=== PATIENT | female | born 1990 | race American Indian/Alaskan Native ===

== ENCOUNTER 2017-02-20 11:11 | Inpatient (IN) | payer MEDICAID ==
[2017-02-20] MEDS ORDERED: LACTATED RINGERS 1,000 ML ONE (12:06)
[2017-02-20] MEDS ORDERED: POLYCILLIN/NS 2 GM/100 ML 2 GM/100 ML BAG IV ONE (12:26)
[2017-02-20 12:41] LABS: Hemoglobin 13.1 gm/dl (10.1-14.3); Mean Corpuscular HGB Conc 35 % (30-34); Mean Corpuscular Hemoglobin 32 pg (28-32); Mean Corpuscular Volume 91 fl (79-97); Platelet Count 249 K/mm3 (140-440); Red Blood Count 4.16 M/mm3 (3.65-5.03); Red Cell Distribution Width 13.8 % (13.2-15.2)
[2017-02-20] MEDS ORDERED: PITOCin/NS 30 UNIT/500ML 30 UNITS/500 ML BAG IV SCH (13:00)
[2017-02-20] MEDS: LACTATED RINGERS 1,000 ML IV SCH ×3 (13:04→16:58)
[2017-02-20] MEDS ORDERED: ePHEDrine SULFATE ONE (13:43)
[2017-02-20] MEDS ORDERED: NARCAN 2 MG/2 ML IV PRN (14:12)
[2017-02-20] MEDS ORDERED: ePHEDrine SULFATE IV PRN (14:12)
--- NOTE | 2017-02-20 14:12 | Anesthesia Consultation ---
Anesthesia Consult and Med Hx Date of service: 02/20/17 - Airway Anesthetic Teeth Evaluation: Good ROM Head & Neck: Adequate Mental/Hyoid Distance: Adequate Mallampati Class: Class II Intubation Access Assessment: Probably Good - Pulmonary Exam CTA: Yes - Cardiac Exam Cardiac Exam: RRR - Pre-Operative Health Status ASA Pre-Surgery Classification: ASA2 Proposed Anesthetic Plan: Epidural, Spinal - Pulmonary Hx Asthma: No COPD: No Hx Pneumonia: No - Cardiovascular System Hx Hypertension: No - Central Nervous System Hx Seizures: No Hx Psychiatric Problems: No - Endocrine Hx Renal Disease: No Hx End Stage Renal Disease: No Hx Hypothyroidism: No Hx Hyperthyroidism: No - Hematic Hx Anemia: No Hx Sickle Cell Disease: No - Other Systems Hx Alcohol Use: No Hx Obesity: Yes - Additional Comments Anesthesia Medical History Comments: IUP
[2017-02-20] MEDS ORDERED: fentaNYL-BUPIV 2 MCG/ML-0.125% 200 MCG/100 ML BAG EPIDURAL SCH (15:00)
[2017-02-20] MEDS ORDERED: POLYCILLIN/NS 1 GM/50 ML 1 GM/50 ML BAG IV SCH (16:00)
--- NOTE | 2017-02-20 17:53 | History and Physical Report ---
History of Present Illness Date of examination: 02/20/17 Date of admission: 02/20/17 11:32 Chief complaint: I'm in labor History of present illness: Patient is a 26 year old who presents to L&D with complaint of contractions. She denies LOF or bleeding. Patient is seen at [facility]. She denies any complications. records are not available for review. Her GBS is unknown Past History Past Medical History: no pertinent history Past Surgical History: no surgical history - Obstetrical History Expected Date of Delivery: 02/25/17 Actual Gestation: 39 Week(s) 2 Day(s) : 3 Number of Living Children: 1 Medications and Allergies Allergies Allergy/AdvReac Type Severity Reaction Status Date / Time No Known Allergies Allergy Verified 01/08/14 20:57 Active Meds: Active Medications Ephedrine Sulfate (Ephedrine Sulfate) 10 mg IV Q2M PRN PRN Reason: Hypotension Stop: 02/20/17 22:00 Ampicillin Sodium (Polycillin/Ns 1 Gm/50 Ml) 1 gm in 50 mls @ 100 mls/hr IV Q4H OSCAR Lactated Ringer's (Lactated Ringers) 1,000 mls @ 125 mls/hr IV DIRECT OSCAR Last Admin: 02/20/17 16:58 Dose: 125 mls/hr Oxytocin/Sodium Chloride (Pitocin/Ns 20 Unit/1000ml Drip) 20 units in 1,000 mls @ 0 mls/hr IV DIRECT OSCAR PRN Reason: As Directed Oxytocin/Sodium Chloride (Pitocin/Ns 30 Unit/500ml) 30 units in 500 mls @ 2 mls /hr IV TITR OSCAR PRN Reason: Protocol Fentanyl/Bupivacaine/Sodium Chlor (Fentanyl-Bupiv 2 Mcg/Ml-0.125%) 200 mcg in 100 mls @ 12 mls/hr EPIDURAL TITR OSCAR PRN Reason: Protocol Last Admin: 02/20/17 15:33 Dose: 12 mls/hr Naloxone HCl (Narcan 2 Mg/2 Ml) 0.2 mg IV Q5M PRN PRN Reason: Respiratory sedation Stop: 02/20/17 23:59 Review of Systems All systems: negative Breasts: deferred Genitourinary: deferred - Vital Signs Vital signs: Vital Signs Temp Pulse Resp BP Pulse Ox 98.4 F 73 18 128/75 98 02/20/17 11:41 02/20/17 11:41 02/20/17 11:41 02/20/17 11:41 02/20/17 11:41 Temp Pulse Resp BP Pulse Ox 97.8 F 80 18 109/65 100 02/20/17 16:59 02/20/17 17:49 02/20/17 16:59 02/20/17 17:48 02/20/17 17:49 - Physical Exam Breasts: Cardiovascular: Regular rate, Normal S1, Normal S2 Lungs: Positive: Clear to auscultation, Normal air movement Abdomen: Positive: normal appearance, soft, normal bowel sounds. Negative: distention, tenderness Genitourinary (Female): Positive: normal external genitalia, normal perenium Vulva: both: normal Vagina: Positive: normal moisture. Negative: discharge Cervix: Negative: lesion, discharge Uterus: Positive: normal size, normal contour Adnexa: both: normal Anus/Rectum: Positive: normal perianal skin, heme negative. Negative: rectal mass, hemorrhoids Extremities: Deep Tendon Reflex Grade: Normal +2 - Obstetrical Cervical Dilatation: 4.5 Cervical Effacement Percentage: 90 station: -2 Uterine Contraction Pattern: Regular Uterine Contraction Intensity: Moderate Results Result Diagrams: 02/20/17 12:00 Abnormal lab results 02/20/17 Range/Units 12:00 MCHC 35 H (30-34) % All other labs normal. Assessment and Plan IUP at 39.2 weeks in active labor. Admit to L&D. AROM when able. anticipate .
[2017-02-20] MEDS: PITOCin/NS 20 UNIT/1000ML DRIP 20 UNITS/1,000 ML BAG IV SCH ×2 (18:34→21:16)
--- NOTE | 2017-02-20 18:41 | Procedure Note ---
OB Delivery Note - Delivery Date of Delivery: 02/20/17 Surgeon: TANNER HOLCOMB Estimated blood loss: 200cc - Vaginal Delivery presentation: vertex Delivery position: OA Intrapartum events: none Delivery induction: none Delivery monitor: external FHT, external uterine Route of delivery: Indicators for instrumentation: nonreassuring FHR tracing Delivery placenta: spontaneous Delivery cord: nuchal cord, 3 umbilical vessels Episiotomy: none Delivery laceration: none Anesthesia: epidural Delivery comments: Viable male delivered over intact perineum with loose nuchal easily reduced on perineum. delivered and placed on maternal abdomen. Cord clamped and cut when done pulsating. Apgars 7,9. Placenta delivered spontaneously and intact. No lacerations. Excellent hemostasis. Patient tolerated procedure well. - Infant A at 1 minute: 7 at 5 minutes: 9 Infant Gender: Male (7 pounds 2 ounces 3243 grams)
[2017-02-20] MEDS ORDERED: DULCOLAX PR PRN (20:58)
[2017-02-20] MEDS ORDERED: TUCKS PAD TP PRN (20:58)
[2017-02-20] MEDS ORDERED: ZOFRAN IV PRN (20:58)
[2017-02-20] MEDS ORDERED: TYLENOL PO PRN (20:58)
[2017-02-20] MEDS ORDERED: SODIUM CHLORIDE FLUSH SYRINGE 10 ML IV NR (20:58)
[2017-02-20] MEDS ORDERED: PHENERGAN PO PRN (20:58)
[2017-02-20] MEDS ORDERED: PHENERGAN PR PRN (20:58)
[2017-02-20] MEDS ORDERED: MILK OF MAGNESIA PO PRN (20:58)
[2017-02-20] MEDS ORDERED: BENADRYL PO PRN (20:58)
[2017-02-20] MEDS: MOTRIN PO SCH (21:11)
[2017-02-20] MEDS: COLACE PO SCH (21:11)
[2017-02-20] MEDS: NORCO 5/325 PO PRN (23:03)
[2017-02-21] MEDS: MOTRIN PO SCH ×4 (03:51→23:40)
[2017-02-21] MEDS ORDERED: BOOSTRIX IM ONE (04:00)
[2017-02-21 07:15] LABS: Hematocrit 33.6 % (30.3-42.9); Hemoglobin 11.1 gm/dl (10.1-14.3)
[2017-02-21] MEDS: NORCO 5/325 PO PRN (09:59)
[2017-02-21] MEDS ORDERED: PRENATAL VITAMIN PO SCH (10:00)
[2017-02-21] MEDS: COLACE PO SCH (23:40)
[2017-02-22] MEDS: MOTRIN PO SCH ×2 (06:56→12:15)
--- NOTE | 2017-02-22 08:36 | Progress Note ---
Assessment and Plan A/P PPD#2 s/p doing well breast feeding desires iud PP for control ambulating well tolerating diet pain well controlled h 13.1-11.1 O+ d/c home to f/u in 4 weeks Subjective - Subjective Date of service: 02/22/17 Principal diagnosis: s/p Patient reports: appetite normal, voiding normally, pain well controlled, flatus , ambulating normally : doing well, nursing well Objective - Vital Signs Latest vital signs: Vital Signs Temp Pulse Resp BP BP Pulse Ox 02/22/17 00:42 97.8 F 71 20 113/71 99 02/21/17 16:26 98.2 F 75 18 101/59 100 02/21/17 09:59 20 Intake and Output 02/21/17 02/22/17 02/22/17 23:59 07:59 15:59 Intake Total 480 480 Balance 480 480 Intake: Oral 240 480 Intake, Free Water 240 Other: Total, Intake Amount 240 240 # Voids Void 1 - Exam Breasts: Present: normal Cardiovascular: Present: Regular rate, Normal S1 Lungs: Present: Clear to auscultation, Normal air movement Abdomen: Present: normal appearance, soft, normal bowel sounds. Absent: distention, tenderness Vulva: both: normal Uterus: Present: normal, firm, fundal height below umbilicus. Absent: bogginess , tenderness Extremities: Present: normal Deep Tendon Reflex Grade: Normal +2
--- NOTE | 2017-02-22 08:37 | Discharge Summary ---
Providers - Providers Date of Admission: 02/20/17 11:32 Date of discharge: 02/22/17 Attending physician: LLOYD KRUGER MD Primary care physician: LLOYD KRUGER MD Hospitalization Reason for admission: active labor Delivery: Episiotomy: none Laceration: none Other procedures: none complications: none [place] baby: male Condition at discharge: Good Disposition: DC-01 TO HOME OR SELFCARE Plan - Discharge Medications Prescriptions: Ibuprofen [Motrin] 600 mg PO Q8H PRN #30 tablet PRN Reason: Pain oxyCODONE /ACETAMINOPHEN [Percocet 5/325] 1 tab PO Q6HR PRN #30 tablet PRN Reason: Pain - Provider Discharge Summary Activity: routine, no sex for 6 weeks, no strenuous exercise Diet: routine Instructions: routine Additional instructions: [] Smoking cessation referral if applicable(refer to patient education folder for contact #) [] Refer to [facility]'s [facility] Booklet Call your doctor immediately for: * Fever > 100.5 * Heavy vaginal bleeding ( >1 pad per hour) * Severe persistent headache * Shortness of breath * Reddened, hot, painful area to leg or breast * Drainage or odor from incision. * Keep incision clean and dry at all times and follow doctor's instructions regarding bathing/showering - Follow up plan Follow up: LLOYD KRUGER MD [Primary Care Provider] - 03/16/17
[2017-02-22] MEDS: COLACE PO SCH (12:15)
[2017-02-22 14:49] VITALS: BP 118/75
== END 2017-02-22 13:50 | disposition home or self-care (01) | DRG 775 ==
LOC: TRG 11:11 → LD 11:32 → OB 20:05
PROVIDERS: ADMIT Obstetrics & Gynecology; ATTEND Obstetrics & Gynecology
PROC: 10E0XZZ Delivery of Products of Conception, External Approach (ICD-10-PCS; principal; 2017-02-20)
PROC: 3E0R3BZ Introduction of Anesthetic Agent into Spinal Canal, Percutaneous Approach (ICD-10-PCS; 2017-02-20)
PROC: 00HU33Z Insertion of Infusion Device into Spinal Canal, Percutaneous Approach (ICD-10-PCS; 2017-02-20)
DX: O69.81X0 Labor and delivery complicated by cord around neck, without compression, not applicable or unspecified (principal); O76 Abnormality in fetal heart rate and rhythm complicating labor and delivery; O99.214 Obesity complicating childbirth; E66.9 Obesity, unspecified; Z3A.39 39 weeks gestation of pregnancy; Z37.0 Single live birth; Z68.39 Body mass index [BMI] 39.0-39.9, adult
CPT/HCPCS: 36415; 85014; 85018; 85027; 86592; 86850; 86900; 86901; 90471; 90715; 99211; G0463; J0290; J2590; J7120